=== PATIENT | male | born 1995 | race Caucasian/White ===

== ENCOUNTER 2017-08-15 09:27 | Emergency (ER) | payer SELFPAY ==
[~2017-08-15] VITALS: Ht 162.6 cm; Wt 50.3 kg
[2017-08-15 09:31] VITALS: Ht 162.6 cm; Wt 50.3 kg
[2017-08-15 10:51] VITALS: BP 111/65
== END 2017-08-15 10:51 | disposition home or self-care (01) ==
LOC: ED 09:27
DX: R10.9 Unspecified abdominal pain (principal); R11.2 Nausea with vomiting, unspecified; R19.7 Diarrhea, unspecified
CPT/HCPCS: J1885; Q0162

== ENCOUNTER 2018-04-04 20:54 | Inpatient (IN) | payer OTHER ==
[~2018-04-04] VITALS: Ht 160 cm; Wt 50.0 kg
[2018-04-04 21:00] VITALS: Ht 160 cm; Wt 50.0 kg
[2018-04-04 22:37] LABS: PLATELET COUNT 286 x10^3mcL (130-400); RED CELL DISTRIBUTION WIDTH 13.3 % (11.5-14.5)
[2018-04-04 22:44] LABS: microscopic required? YES; urine erythrocyte NEGATIVE (NEGATIVE)
[2018-04-04 22:53] LABS: CALCIUM 9.5 mg/dL (8.5-10.1); CARBON DIOXIDE 29.1 mmol/L (21-32); CHLORIDE SERUM 101 mmol/L (98-107); CREATININE SERUM 0.8 mg/dL (0.7-1.3); GFR1 > 60 mL/min; GLUCOSE SERUM 94 mg/dL (74-106); POTASSIUM SERUM 3.6 mmol/L (3.5-5.1); SODIUM SERUM 141 mmol/L (136-145)
[2018-04-04 22:57] LABS: ALBUMIN 4.2 g/dL (3.4-5.0); ALKALINE PHOSPHATASE 86 U/L (46-116); ALT/SGPT 28 U/L (16-63); AST/SGOT 24 U/L (15-37); BILIRUBIN TOTAL 0.41 mg/dL (0.20-1.00); LIPASE 130 IU/L (73-393)
[2018-04-04 23:09] LABS: TOTAL PROTEIN, SERUM 8.3 g/dL (6.4-8.2)
[2018-04-04 23:43] LABS: AMPHETAMINE QUAL UR NONE DETECTED (See below)
[2018-04-05 01:39] LABS: BAND NEUTROPHIL 3 % (0-10); MONOCYTE 5 % (0-7); SEGMENTED NEUTROPHILS 74 % (37-75)
[2018-04-05 01:41] LABS: PLATELET MORPHOLOGY PLATELETS NORMAL; rbc morphology (normal/abnorm) NORMAL (NORMAL)
[2018-04-05] MEDS ORDERED: XAN1 PO (02:08)
[2018-04-05 04:52] VITALS: BP 105/60
[2018-04-05 05:18] VITALS: BP 105/60
[2018-04-05 08:39] LABS: FREE T4 0.87 ng/dL (0.76-1.46); FREE THYROXINE INDEX 2.1 ug/dL (1.4-4.5); T4(THYROXINE) 6.2 ug/dL (4.7-13.3)
[2018-04-05 08:55] LABS: CHOLESTEROL/HDL RATIO 3.6; MAGNESIUM 1.7 mg/dL (1.8-2.4); PHOSPHOROUS 3.9 mg/dL (2.5-4.9)
[2018-04-05 09:31] VITALS: BP 96/49
[2018-04-05 09:45] VITALS: BP 100/49
[2018-04-05 13:03] VITALS: BP 100/49
[2018-04-05 14:06] VITALS: BP 113/56
== END 2018-04-05 17:03 | disposition home or self-care (01) | DRG 776 ==
LOC: ED 20:54 → DU 04-05 02:07
PROVIDERS: Emergency Medicine; Family Medicine
DX: F12.188 Cannabis abuse with other cannabis-induced disorder (principal); F32.9 Major depressive disorder, single episode, unspecified; F41.9 Anxiety disorder, unspecified; K59.00 Constipation, unspecified
CPT/HCPCS: 83880; 84439; J2270; J2543; J2765; J7030; Q9967

== ENCOUNTER 2018-11-07 01:47 | Inpatient (IN) | payer MEDICAID ==
[~2018-11-07] VITALS: Ht 162.6 cm; Wt 51.3 kg
[~2018-11-07 01:47] MED LIST: XAN1 PO
[2018-11-07 01:54] VITALS: Ht 162.6 cm; Wt 51.3 kg
[2018-11-07 02:47] LABS: BASOPHIL % 0.3 % (0-2); PLATELET COUNT 292 x10^3mcL (130-400); RED CELL DISTRIBUTION WIDTH 13.5 % (11.5-14.5)
[2018-11-07 03:04] LABS: CARBON DIOXIDE 27.6 mmol/L (21-32); CHLORIDE SERUM 106 mmol/L (98-107); CREATININE SERUM 0.9 mg/dL (0.7-1.3); GFR1 > 60 mL/min; GLUCOSE SERUM 106 mg/dL (74-106); POTASSIUM SERUM 3.8 mmol/L (3.5-5.1); SODIUM SERUM 144 mmol/L (136-145)
[2018-11-07 03:08] LABS: ALKALINE PHOSPHATASE 79 U/L (46-116); ALT/SGPT 25 U/L (16-63); AST/SGOT 21 U/L (15-37); BILIRUBIN TOTAL 0.55 mg/dL (0.20-1.00); TOTAL PROTEIN, SERUM 8.2 g/dL (6.4-8.2)
[2018-11-07 03:13] LABS: microscopic required? NO
[2018-11-07 03:24] LABS: UA SPECIFIC GRAVITY >=1.030 (1.005-1.035); urine erythrocyte NEGATIVE (NEGATIVE)
[2018-11-07] MEDS ORDERED: WEL100 (03:26)
[2018-11-07 03:33] LABS: AMPHETAMINE QUAL UR NONE DETECTED (See below)
[2018-11-07 05:13] VITALS: BP 99/48
[2018-11-07 06:01] VITALS: BP 94/42
[2018-11-07 06:50] LABS: BASOPHIL % 0.3 % (0-2); PLATELET COUNT 292 x10^3mcL (130-400); RED CELL DISTRIBUTION WIDTH 13.9 % (11.5-14.5)
[2018-11-07 07:32] LABS: PHOSPHOROUS 3.6 mg/dL (2.5-4.9)
[2018-11-07 09:14] VITALS: BP 92/46; BP 96/58
[2018-11-07 16:36] VITALS: BP 95/46
[2018-11-07 20:46] VITALS: BP 101/56
[2018-11-08 06:18] VITALS: BP 96/54
[2018-11-08 06:18] LABS: CALCIUM 8.5 mg/dL (8.5-10.1); CARBON DIOXIDE 25.7 mmol/L (21-32); CHLORIDE SERUM 107 mmol/L (98-107); CREATININE SERUM 0.7 mg/dL (0.7-1.3); GFR1 > 60 mL/min; GLUCOSE SERUM 89 mg/dL (74-106); POTASSIUM SERUM 3.5 mmol/L (3.5-5.1); SODIUM SERUM 143 mmol/L (136-145)
[2018-11-08 08:12] VITALS: BP 94/53
[2018-11-08 08:40] VITALS: BP 96/54
== END 2018-11-08 10:15 | disposition home or self-care (01) | DRG 776 ==
LOC: ED 01:47 → DU 03:15
PROVIDERS: Emergency Medicine; ADMIT Internal Medicine
DX: F13.239 Sedative, hypnotic or anxiolytic dependence with withdrawal, unspecified (principal); R56.9 Unspecified convulsions; T42.4X6A Underdosing of benzodiazepines, initial encounter; F41.9 Anxiety disorder, unspecified; Z91.138 Patient's unintentional underdosing of medication regimen for other reason; Y92.009 Unspecified place in unspecified non-institutional (private) residence as the place of occurrence of the external cause
CPT/HCPCS: 83880; 87804; G0480; J7030